=== PATIENT | female | born 1955 | race Caucasian/White ===

== ENCOUNTER 2016-09-02 10:55 | Day surgery (SDC) | END 2016-09-02 17:05 | disposition home or self-care (01) | DX: C54.1 Malignant neoplasm of endometrium (principal); N95.0 Postmenopausal bleeding; E11.9 Type 2 diabetes mellitus without complications; Z79.4 Long term (current) use of insulin; E78.5 Hyperlipidemia, unspecified; I10 Essential (primary) hypertension; E66.01 Morbid (severe) obesity due to excess calories; Z68.41 Body mass index [BMI] 40.0-44.9, adult; Z88.2 Allergy status to sulfonamides | CPT/HCPCS: 58120; 82962; J0330; J0690; J1100; J2405; J2765; J3010 ==

== ENCOUNTER → 2016-09-19 | Outpatient (CLI) | payer OTHER ==
[~2016-09-19] MED LIST: ASPI81TA3 PO; BUPR300T48 PO; CHOL400T10 PO; FENO145T25 PO; GLYB5TAB3 PO; LANT3I SC; LOSA50TA6 PO; MULTI PO; NIAC500T81 PO; OMEG1CAP9 PO; SITA1TAB5 PO
[2016-09-19 12:47] LABS: POTASSIUM 4.2 mmol/L (3.5-5.1)
[2016-09-19 12:49] LABS: CREATININE 0.77 mg/dl (0.44-1.00)
[2016-09-19 12:50] LABS: CALCIUM 10.1 mg/dl (8.4-10.2)
== END | disposition home or self-care (01) ==
LOC: LAB 12:06
PROVIDERS: ATTEND Obstetrics & Gynecology Gynecologic Oncology
DX: C55 Malignant neoplasm of uterus, part unspecified (principal)
CPT/HCPCS: 80048

== ENCOUNTER → 2016-09-24 | Outpatient (CLI) | payer OTHER ==
[~2016-09-24] MED LIST changes: +IODIXANOL LOCM 100 ML BTL ONE; +SOD CHLORIDE 0.9% 100 ML ONE
--- NOTE | 2016-09-24 17:15 | RADRPT ---
PROCEDURE: CT of the abdomen and pelvis CLINICAL INDICATION: Abdominal pain. History of uterine cancer. TECHNIQUE: The study was performed utilizing a GE [employer] 64-slice multidetector CT scanner. Dir ect spiral axial sections were obtained through the abdomen and pelvis with intravenous contrast. Af ter administration of 99 cc of Visipaque 320, postcontrast images were obtained. Coronal and sagitt al reformatted images were performed. The CTDI vol is 23.35 mGy and the DLP is 1424.15 mGy-cm. The images were reviewed on a PACS workstation. COMPARISON: No prior studies are available for comparison. FINDINGS: CT abdomen: Mild scarring in the lung bases is seen. The remaining lung bases are clear. The hear t is not enlarged. No pleural or pericardial effusion is seen. The liver is enlarged measuring 22.5 cm in size with fatty infiltration. The liver morphology is ab normal with enlargement of the caudate lobe and lateral segment of the left hepatic lobe. No focal liver lesions or intrahepatic biliary dilatation is seen. The gallbladder is normal. No common bile duct dilatation is seen. The spleen is mildly enlarged 12.5 cm. The spleen, pancreas, and adrenal gl ands are unremarkable in appearance. The kidneys enhance normally. Bilateral renal cortical scarring is seen. Multiple right parapelvic renal cysts is seen as well as a probable simple cortical cyst. No evidence of hydronephrosis or nephrolithiasis is seen. The stomach is unremarkable. A ventral hernia is seen containing segments of small bowel without ev idence of obstruction. The small and large bowel are otherwise unremarkable in course and caliber. No inflammatory changes in the periappendiceal region is seen. No enlarged lymph nodes or fluid col lections are seen. The aorta is normal in caliber. CT pelvis: No pelvic adenopathy, or focal fluid collection is seen. There is no free fluid. The u rinary bladder is normal. A 4 mm calcification is seen in the uterine fundus. A hypodense structure is seen in the left uterine body measuring approximately 3.8 x 3.5 cm in size and is ill defined in appearance. No osseous lesions are seen. Degenerative spondylosis of the lumbar spine is seen. IMPRESSION: 1. No acute pathology in the abdomen and pelvis. 2. Mild to moderate hepatomegaly with fatty infiltration of the liver. In addition, abnormal liver morphology which may be related to chronic liver disease. Correlation with liver function tests ma y be of value as clinically warranted. 3. Ventral hernia containing small bowel without evidence of obstruction. 4. Hypodense structure in the left uterine body. Further evaluation with a pelvic ultrasound is re commended. RPTAT: [facility] Physician Dorothy Date Time Electronically viewed and signed by Lam Patrick Physician on 09/24/2016 17:15 /
== END | disposition home or self-care (01) ==
LOC: C/S 08:40
PROVIDERS: ATTEND Obstetrics & Gynecology Gynecologic Oncology
DX: C55 Malignant neoplasm of uterus, part unspecified (principal); R16.0 Hepatomegaly, not elsewhere classified; K76.0 Fatty (change of) liver, not elsewhere classified; K43.9 Ventral hernia without obstruction or gangrene
CPT/HCPCS: 74177; Q9967